=== PATIENT | female | born 1970 | race Caucasian/White ===

== ENCOUNTER 2017-11-30 05:11 | Emergency (ER) | payer MEDICAID ==
[2017-11-30] MEDS ORDERED: ONDANSETRON 4 MG TAB.RAPDIS PO ONE (06:30)
[2017-11-30] MEDS ORDERED: FAMOTIDINE 20 MG TABLET PO ONE (06:31)
--- NOTE | 2017-11-30 06:35 | ER Document Report ---
ED General - General Chief Complaint: Nausea Stated Complaint: NAUSEA Time Seen by Provider: 11/30/17 06:12 Mode of Arrival: Ambulatory Information source: Patient, [facility] Records Notes: 47-year-old female with type 2 diabetes, hypertension, hypothyroidism presents with complaint of nausea, and diarrhea. Patient states nausea has been present for several weeks. She denies any associated vomiting. She states that she was placed on a new diabetic medication Januvia and had her dose increased from 25 mg to 50 mg approximately 2 weeks ago. She has been in touch with her seo engineer and does have an upcoming appointment. She denies any associated fever, chills, chest pain, shortness of breath, dysuria, hematuria. She does admit to 3 episodes of nonbloody nonblack diarrhea that started 1 day ago. She has had associated abdominal cramping with this. She denies sick contacts. She is currently out of town visiting friends. - HPI Onset: Other Onset/Duration: Gradual, Persistent Quality of pain: Cramping Severity: Mild Associated symptoms: Body/muscle aches, Diarrhea, Nausea. denies: Fever, Vomiting Exacerbated by: Denies Relieved by: Denies Similar symptoms previously: Yes Recently seen / treated by doctor: Yes - Related Data Allergies/Adverse Reactions: No Known Allergies Allergy (Unverified 11/30/17 05:20) Past Medical History - General Information source: Patient, [facility] Records - Social History Smoking Status: Never Smoker Frequency of alcohol use: None Drug Abuse: None Lives with: Family Family History: Reviewed & Not Pertinent Patient has suicidal ideation: No Patient has homicidal ideation: No - Past Medical History Cardiac Medical History: Reports: Hx Hypertension Endocrine Medical History: Reports: Hx Diabetes Mellitus Type 2, Hx Hypothyroidism Review of Systems - Review of Systems Notes: REVIEW OF SYSTEMS: CONSTITUTIONAL : Denies fever, chills, or sweats. Denies recent illness. Denies weight loss, recent hospitalizations. EENT: Denies visual changes, eye pain. Denies nasal or sinus congestion or discharge. Denies sore throat, oral lesions, difficulty swallowing. CARDIOVASCULAR: Denies chest pain. Denies palpitations. Denies lower extremity edema. RESPIRATORY: Denies cough, cold, or chest congestion. Denies shortness of breath, wheezing. GASTROINTESTINAL: Denies abdominal distention. Denies vomiting, Denies blood in vomitus, stools, or per rectum. Denies black, tarry stools. Denies constipation. GENITOURINARY: Denies difficulty urinating, painful urination, frequency, blood in urine, or vaginal discharge. MUSCULOSKELETAL: Denies back or neck pain or stiffness. Denies joint pain or swelling. SKIN: Denies rash, lesions or sores. HEMATOLOGIC : Denies easy bruising or bleeding. LYMPHATIC: Denies swollen glands. NEUROLOGICAL: Denies confusion or altered mental status. Denies passing out or loss of consciousness. Denies dizziness or lightheadedness. Denies headache. Denies weakness or paralysis. Denies problems difficulty with ambulation, slurred speech. Denies sensory loss, numbness, or tingling. Denies seizures. PSYCHIATRIC: Denies anxiety or stress. Denies depression, suicidal ideation, or homicidal ideation. Denies visual or auditory hallucinations. Physical Exam - Vital signs Vitals: Temp Pulse Resp BP Pulse Ox 98.3 F 97 18 147/91 H 98 11/30/17 05:23 11/30/17 05:23 11/30/17 05:23 11/30/17 05:23 11/30/17 05:23 Interpretation: Hypertensive - Notes Notes: PHYSICAL EXAMINATION: GENERAL: Well-appearing, well-nourished and in no acute distress. HEAD: Atraumatic, normocephalic. EYES: Pupils equal round and reactive to light, extraocular movements intact, conjunctiva are normal. ENT: Nares patent, oropharynx clear without exudates. Moist mucous membranes. NECK: Normal range of motion, supple without lymphadenopathy LUNGS: Breath sounds clear to auscultation bilaterally and equal. No wheezes rales or rhonchi. HEART: Regular rate and rhythm without murmurs ABDOMEN: Soft, nontender, nondistended abdomen. No guarding, no rebound. No masses appreciated. Female : deferred Musculoskeletal: Normal range of motion, no pitting or edema. No cyanosis. NEUROLOGICAL: Cranial nerves grossly intact. Normal speech, normal gait. Normal sensory, motor exams PSYCH: Normal mood, normal affect. SKIN: Warm, Dry, normal turgor, no rashes or lesions noted. Course - Re-evaluation Re-evalutation: 11/30/17 13:02 Laboratory 11/30/17 11/30/17 11/30/17 06:28 06:37 06:50 Sodium 130.1 L Potassium 3.4 L Chloride 96 L Carbon Dioxide 18 L Anion Gap 16 BUN 8 Creatinine 0.57 Est GFR ( Amer) > 60 Est GFR (Non-Af Amer) > 60 Glucose 96 POC Glucose 107 Calcium 9.3 Urine Color YELLOW Urine Appearance SLIGHTLY-CLOUDY Urine pH 5.0 Ur Specific Printer 1.008 Urine Protein NEGATIVE Urine Glucose (UA) 50 H Urine Ketones 20 H Urine Blood NEGATIVE Urine Nitrite NEGATIVE Urine Bilirubin NEGATIVE Urine Urobilinogen NEGATIVE Ur Leukocyte Esterase NEGATIVE Urine WBC (Auto) 2 Urine RBC (Auto) 0 U Hyaline Cast (Auto) 1 Urine Bacteria (Auto) 1+ Squamous Epi Cells Auto 3 Urine Mucus (Auto) RARE Urine Ascorbic Acid NEGATIVE 11/30/17 08:45 Sodium Potassium Chloride Carbon Dioxide Anion Gap BUN Creatinine Est GFR ( Amer) Est GFR (Non-Af Amer) Glucose POC Glucose 113 H Calcium Urine Color Urine Appearance Urine pH Ur Specific Printer Urine Protein Urine Glucose (UA) Urine Ketones Urine Blood Urine Nitrite Urine Bilirubin Urine Urobilinogen Ur Leukocyte Esterase Urine WBC (Auto) Urine RBC (Auto) U Hyaline Cast (Auto) Urine Bacteria (Auto) Squamous Epi Cells Auto Urine Mucus (Auto) Urine Ascorbic Acid 47-year-old female with type 2 diabetes, hypertension, hypothyroidism presents with complaint of nausea, and diarrhea. Patient states nausea has been present for several weeks. She denies any associated vomiting. She states that she was placed on a new diabetic medication Januvia and had her dose increased from 25 mg to 50 mg approximately 2 weeks ago. She has been in touch with her seo engineer and does have an upcoming appointment. She denies any associated fever, chills, chest pain, shortness of breath, dysuria, hematuria. She does admit to 3 episodes of nonbloody nonblack diarrhea that started 1 day ago. She has had associated abdominal cramping with this. She denies sick contacts. She is currently out of town visiting friends. Patient was seen by myself upon arrival. Vital signs were reviewed. Patient is afebrile, normotensive and not hypoxic. Patient does not appear toxic or dehydrated. They are in no acute distress. Previous medical records and nursing notes reviewed. Significant findings include mild hyponatremia, mild hyperglycemia and ketones in her urine. Patient was provided IV fluids, Zofran, Reglan and Benadryl. She has had no episodes of vomiting during her ED course. There is no evidence of DKA. Patient was reassured and urged to follow-up with her seo engineer for possible adjustment in her medication. Patient provided the opportunity to ask questions, and express concerns. Discharge instructions discussed. Patient is agreeable with discharge home. Return indications explained and discussed with the patient who displays understanding. Patient encouraged to return to the emergency department immediately with any concerns. 11/30/17 13:02 - Vital Signs Vital signs: Temp Pulse Resp BP Pulse Ox 98.2 F 74 20 126/83 H 99 11/30/17 09:14 11/30/17 09:14 11/30/17 09:14 11/30/17 09:14 11/30/17 09:14 - Laboratory Result Diagrams: 11/30/17 06:37 Laboratory results interpreted by me: 11/30/17 11/30/17 11/30/17 06:37 06:50 08:45 Sodium 130.1 L Potassium 3.4 L Chloride 96 L Carbon Dioxide 18 L POC Glucose 113 H Urine Glucose (UA) 50 H Urine Ketones 20 H Discharge - Discharge Clinical Impression: Dehydration, Hyponatremia, Nausea alone Diabetes Qualifiers: Diabetes mellitus type: type 2 Diabetes mellitus [facility] insulin use: without bow rehairer use Diabetes mellitus complication status: with unspecified complications Qualified Code(s): E11.8 - Type 2 diabetes mellitus with unspecified complications Hypertension Qualifiers: Hypertension type: unspecified Qualified Code(s): I10 - Essential (primary) hypertension Condition: Good Disposition: HOME, SELF-CARE Instructions: Dehydration ([facility]), Hyponatremia ([facility]), Nausea or Vomiting, Nonspecific ([facility]) Additional Instructions: Please follow-up with your seo engineer for possible medication adjustments if you feel you are having complications with your Januvia. Follow up with your physician tomorrow for further care or return to the ED IMMEDIATELY if symptoms worsen or new concerns occur. If you cannot afford to follow up with your primary care physician a list of low cost clinics have been provided at the end of your discharge papers as well. Prescriptions: Ondansetron [Zofran Odt 4 mg Tablet] 1 - 2 tab PO Q4H PRN #15 tab.rapdis PRN Reason: For Nausea/Vomiting Forms: Elevated Blood Pressure, Return to Work
[2017-11-30 07:00] LABS: ANION GAP 16 (5-19); BLOOD UREA NITROGEN 8 mg/dL (7-20); CALCIUM 9.3 mg/dL (8.4-10.2); CARBON DIOXIDE 18 mmol/L (22-30); CHLORIDE 96 mmol/L (98-107); GLUCOSE 96 mg/dL (75-110); POTASSIUM 3.4 mmol/L (3.6-5.0); SODIUM 130.1 mmol/L (137-145)
[2017-11-30 07:16] LABS: APPEARANCE,URINE SLIGHTLY-CLOUDY; BILIRUBIN,URINE NEGATIVE (NEGATIVE); COLOR,URINE YELLOW; GLUCOSE, URINE 50 mg/dL (NEGATIVE); KETONES,URINE 20 mg/dL (NEGATIVE); LEUKOCYTE ESTERASE,URINE NEGATIVE (NEGATIVE); NITRITE,URINE NEGATIVE (NEGATIVE); PROTEIN,URINE NEGATIVE (NEGATIVE); URINE SPECIFIC GRAVITY 1.008; UROBILINOGEN,URINE NEGATIVE mg/dL (<2.0)
[2017-11-30] MEDS ORDERED: METOCLOPRAMIDE HCL 10 MG TABLET PO ONE (08:13)
[2017-11-30] MEDS ORDERED: DIPHENHYDRAMINE HCL 50 MG/ML VIAL IV ONE (08:42)
[2017-11-30] MEDS ORDERED: RINGERS SOLUTION,LACTATED 1,000 ML IV ONE (08:42)
[2017-11-30 09:16] VITALS: BP 126/83
== END 2017-11-30 09:42 | disposition home or self-care (01) ==
LOC: ER 05:11
DX: R11.0 Nausea (principal); R19.7 Diarrhea, unspecified; R10.9 Unspecified abdominal pain; E87.1 Hypo-osmolality and hyponatremia; E86.0 Dehydration; I10 Essential (primary) hypertension; E11.65 Type 2 diabetes mellitus with hyperglycemia; Z79.84 Long term (current) use of oral hypoglycemic drugs
CPT/HCPCS: 99283; 36415; 82962; 80048; 81001; J1200; S0119; J7120